=== PATIENT | female | born 1970 ===

== ENCOUNTER 2018-03-29 10:26 | Emergency (ER) | payer OTHER ==
[2018-03-29] MEDS ORDERED: Sodium Chloride 0.9% 1,000 ML IV STA (12:05)
[2018-03-29 12:22] LABS: BASO % 0.5 % (0.0-2.0); EOS # 0.1 K/uL (0.0-0.7); EOS % 2.5 % (0.0-4.0); HEMOGLOBIN 13.3 g/dL (11.0-16.0); LYMPH # 1.7 K/uL (1.0-4.3); LYMPH % 31.7 % (20.0-40.0); MEAN CELL VOLUME 88.9 fL (81.0-99.0); MEAN CORPUSCULAR HEMOGLOBIN 29.8 pg (27.0-31.0); MEAN CORPUSCULAR HGB CONC 33.6 g/dL (33.0-37.0); MEAN PLATELET VOLUME 8.4 fL (7.2-11.7); MONO # 0.3 K/uL (0.0-0.8); MONO % 6.5 % (0.0-10.0); NEUT # 3.1 K/uL (1.8-7.0); NEUT % 58.8 % (50.0-75.0); NRBC % 0.1 % (0.0-2.0); RBC 4.47 Mil/uL (3.80-5.20); RED CELL DISTRIBUTION WIDTH 13.7 % (11.5-14.5); WHITE BLOOD COUNT 5.3 K/uL (4.8-10.8)
[2018-03-29] MEDS ORDERED: Sodium Chloride 0.9% 1,000 ML ONE (12:22)
[2018-03-29 12:32] LABS: HCG,QUALITATIVE URINE NEGATIVE (NEGATIVE)
[2018-03-29 12:37] LABS: SQUAMOUS EPITHIAL 2 /hpf (0-5); URINE BACTERIA RARE (<OCC); URINE BILIRUBIN NEGATIVE (NEGATIVE); URINE BLOOD 1+ (NEGATIVE); URINE CLARITY Clear (Clear); URINE COLOR Yellow (YELLOW); URINE GLUCOSE (UA) NORMAL (Normal); URINE LEUKOCYTE ESTERASE NEG Leu/uL (Negative); URINE PROTEIN NEGATIVE (NEGATIVE); URINE UROBILINOGEN NORMAL mg/dL (0.2-1.0)
[2018-03-29 12:38] LABS: ALB/GLOB RATIO 1.3 (1.0-2.1); ALBUMIN 4.4 g/dL (3.5-5.0); ALT/SGPT 26 U/L (9-52); AST/SGOT 25 U/L (14-36); BLOOD UREA NITROGEN 10 mg/dL (7-17); CALCIUM 8.6 mg/dl (8.6-10.4); GFR NON-AFRICAN AMERICAN > 60; LIPASE 71 U/L (23-300)
--- NOTE | 2018-03-29 13:19 | C.PDOC ---
History Of Present Illness 47 year old female presents to the ED for evaluation of abdominal pain and nausea which began several days ago. Patient reports having one episode of vomiting and states she developed a headache yesterday. She took Ibuprofen last night, without significant relief. Patient denies fever, chills, diarrhea. Chief Complaint (Nursing): Abdominal Pain History Per: Patient History/Exam Limitations: no limitations Onset/Duration Of Symptoms: Days Current Symptoms Are (Timing): Still Present Location Of Pain/Discomfort: RUQ Radiation Of Pain To:: None Quality Of Discomfort: "Pain" Associated Symptoms: Nausea, Vomiting. denies: Fever, Chills, Diarrhea Additional History Per: Patient Past Medical History Reviewed: Historical Data, Nursing Documentation, Vital Signs Vital Signs: Last Vital Signs Temp 97.9 F 03/29/18 10:29 Pulse 77 03/29/18 10:29 Resp 20 03/29/18 10:29 BP 127/76 03/29/18 10:29 Pulse Ox 100 03/29/18 10:29 - Medical History PMH: No Chronic Diseases Surgical History: No Surg Hx Family History: States: Unknown Family Hx - Social History Hx Alcohol Use: No Hx Substance Use: No - Immunization History Hx Tetanus Toxoid Vaccination: No Hx Influenza Vaccination: No Hx Pneumococcal Vaccination: No Review Of Systems Constitutional: Negative for: Fever, Chills Gastrointestinal: Positive for: Nausea, Vomiting, Abdominal Pain. Negative for: Diarrhea Neurological: Positive for: Headache Physical Exam - Physical Exam Appears: Non-toxic, No Acute Distress Skin: Normal Color, Warm, Dry Head: Atraumatic, Normacephalic Eye(s): bilateral: Normal Inspection Oral Mucosa: Moist Neck: Supple Chest: Symmetrical, No Deformity, No Tenderness Cardiovascular: Rhythm Regular, No Murmur Respiratory: Normal Breath Sounds, No Rales, No Rhonchi, No Wheezing Gastrointestinal/Abdominal: Soft, Tenderness (right upper quadrant ), No Guardi ng, No Rebound Extremity: Normal ROM, Capillary Refill (less than 2 seconds ) Neurological/Psych: Oriented x3, Normal Speech, Normal Cognition ED Course And Treatment - Laboratory Results Result Diagrams: 03/29/18 12:19 03/29/18 12:19 Lab Results: Total Bilirubin 0.5 mg/dL (0.2-1.3) 03/29/18 12: AST 25 U/L (14-36) 03/29/18 12:19 ALT 26 U/L (9-52) 03/29/18 12:19 Alkaline Phosphatase 70 U/L (38-126) 03/29/18 12:19 Total Protein 7.7 g/dL (6.3-8.3) 03/29/18 12:19 Albumin 4.4 g/dL (3.5-5.0) 03/29/18 12:19 Globulin 3.3 gm/dL (2.2-3.9) 03/29/18 12:19 Albumin/Globulin Ratio 1.3 (1.0-2.1) 03/29/18 12:19 Lipase 71 U/L (23-300) 03/29/18 12:19 Urine Color Yellow (YELLOW) 03/29/18 12: Urine Clarity Clear (Clear) 03/29/18 12: Urine pH 7.0 (5.0-8.0) 03/29/18 12:19 Ur Specific [place] 1.009 (1.003-1.030) 03/29/18 12:19 Urine Protein Negative mg/dL (NEGATIVE) 03/29/18 12:19 Urine Glucose (UA) Normal mg/dL (Normal) 03/29/18 12:19 Urine Ketones Negative mg/dL (NEGATIVE) 03/29/18 12: Urine Blood 1+ (NEGATIVE) H 03/29/18 12:19 Urine Nitrate Negative (NEGATIVE) 03/29/18 12:19 Urine Bilirubin Negative (NEGATIVE) 03/29/18 12:19 Urine Urobilinogen Normal mg/dL (0.2-1.0) 03/29/18 12:19 Ur Leukocyte Esterase Neg Gunn[place]/uL (Negative) 03/29/18 12:19 Urine WBC (Auto) < 1 /hpf (0-5) 03/29/18 12:19 Urine RBC (Auto) < 1 /hpf (0-3) 03/29/18 12:19 Ur Squamous Epith Cells 2 /hpf (0-5) 03/29/18 12:19 Urine Bacteria Rare (<OCC) 03/29/18 12:19 Urine HCG, Qual Negative (NEGATIVE) 03/29/18 12: Urine HCG, Qual Negative (NEGATIVE) 03/29/18 12:19 O2 Sat by Pulse Oximetry: 100 (on RA) Pulse Ox Interpretation: Normal - CT Scan/US RUQ US Other Rad Studies (CT/US): Read By Radiologist, Radiology Report Reviewed CT/US Interpretation: Accession No. : [id number]. Patient Name / ID : STEVIE CHAMORRO / [id number]. Exam Date : 03/29/2018 13:56:46 ( Approved ). Study Comment : Sex / Age : F / 47Y. Creator : Shira Herrera MD. Dictator : Shira Herrera MD. Senior Architect/Design Manager : Vascular Sonographer : Shira Herrera MD. Approver2 : Report Date : 03/29/2018 14:29:06. My Comment : . Date of service: 03/29/2018. HISTORY: RUQ abd pain. COMPARISON: None available. TECHNIQUE: Sonographic evaluation of the right upper quadrant of the abdomen. FINDINGS: LIVER: Measures 20.7 cm in length. Echogenic liver may be seen in setting of hepatic parenchymal disease or fatty infiltration. No focal hepatic mass identified. The main portal vein appears patent with normal directional flow. No intrahepatic bile duct dilatation. GALLBLADDER: No gallstones. No gallbladder wall thickening or pericholecystic edema. Negative sonographic Arrington's sign as assessed by the rug touch up painter. COMMON BILE DUCT: Measures 4 mm. PANCREAS: Not well-visualized. RIGHT KIDNEY: Measures approximately 10.3 x 5.2 x 5.1 cm. No obstructing calculus or hydronephrosis identified. AORTA: Limited visualization appears grossly unremarkable. IVC: Limited visualization appears grossly unremarkable. OTHER FINDINGS: None . IMPRESSION: Echogenic liver may be seen in setting of hepatic parenchymal disease or fatty infiltration. Hepatomegaly. Progress Note: Bloodwork, urinalysis, Abdominal Ultrasound ordered and reviewed. Patient given Protonix IVP, Reglan IVP, and IV Fluids. Disposition - Disposition Disposition: HOME/ ROUTINE Disposition Time: 17:29 Condition: STABLE Additional Instructions: Follow up with PMD within 1-2 days. Return to ED if feel worse. 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 - Scribe Statement The provider has reviewed the documentation as recorded by the Scribe (Shani Tanner) All medical record entries made by the Scribe were at my direction and personally dictated by me. I have reviewed the chart and agree that the record accurately reflects my personal performance of the history, physical exam, medical decision making, and the department course for this patient. I have also personally directed, reviewed, and agree with the discharge instructions and disposition.
[2018-03-29 14:31] VITALS: RESP 17; TEMP 98.9
--- NOTE | 2018-03-29 14:32 | US ---
Date of service: 03/29/2018 HISTORY: RUQ abd pain COMPARISON: None available TECHNIQUE: Sonographic evaluation of the right upper quadrant of the abdomen. FINDINGS: LIVER: Measures 20.7 cm in length. Echogenic liver may be seen in setting of hepatic parenchymal disease or fatty infiltration. No focal hepatic mass identified. The main portal vein appears patent with normal directional flow. No intrahepatic bile duct dilatation. GALLBLADDER: No gallstones. No gallbladder wall thickening or pericholecystic edema. Negative sonographic Arrington's sign as assessed by the wedger machine. COMMON BILE DUCT: Measures 4 mm. PANCREAS: Not well-visualized. RIGHT KIDNEY: Measures approximately 10.3 x 5.2 x 5.1 cm. No obstructing calculus or hydronephrosis identified. AORTA: Limited visualization appears grossly unremarkable. IVC: Limited visualization appears grossly unremarkable. OTHER FINDINGS: None . IMPRESSION: Echogenic liver may be seen in setting of hepatic parenchymal disease or fatty infiltration. Hepatomegaly.
[2018-03-29 17:06] VITALS: BP 105/72; PULSE 63
[2018-03-29 17:29] VITALS: O2SAT 100
== END 2018-03-29 18:24 | disposition home or self-care (01) ==
LOC: C.ER 10:26
DX: R51 Headache (principal); R10.11 Right upper quadrant pain
CPT/HCPCS: 76705; 80053; 81001; 83690; 84703; 85025; 96361; 96374; 96375; 99285; C9113; J2765; J7030

== ENCOUNTER 2018-08-08 14:08 | Outpatient (CLI) | payer OTHER | END 2018-08-08 14:09 | disposition home or self-care (01) | LOC: C.MAMMO 14:08 | DX: Z12.31 Encounter for screening mammogram for malignant neoplasm of breast (principal) ==